=== PATIENT | female | born 1985 | race Caucasian/White ===

== ENCOUNTER 2016-09-12 17:57 | Emergency (ER) | payer MEDICAID ==
[~2016-09-12] VITALS: Ht 162.6 cm; Wt 98.0 kg
[2016-09-12 17:59] VITALS: Ht 162.6 cm; Wt 98.0 kg
[2016-09-12 18:58] LABS: URINE BLOOD (Dip) POC 2+ (NEGATIVE)
[2016-09-12] MEDS ORDERED: HYDROCODONE/APAP (5/325) TAB PO ONE (19:00)
--- NOTE | 2016-09-12 20:02 | RADRPT ---
PROCEDURE: US Pelvis. CLINICAL INDICATION: Pelvic pain. Left lower quadrant pain. TECHNIQUE: The pelvis was evaluated with transabdominal and transvaginal sonography in the axial a nd sagittal planes. COMPARISON: No prior study is available for comparison. FINDINGS: Uterus: 9.1 x 4.1 x 4.7 cm. Endometrium: 4.1 mm. An IUD is present in satisfactory position within the endometrial canal. Right ovary: Not visualized. Left ovary: 4.7 x 4.2 x 3.5 cm. Uterine masses: None. Ovarian masses: The right ovary is not visualized. There is a left ovarian cyst measuring 4.0 x 3.3 x 3.8 cm. There are no internal echoes or septations. Color Doppler and pulsed Doppler sonography demonstrate normal flow to left ovary. Other pelvic masses: None. Free fluid: None. IMPRESSION: 1. IUD in satisfactory position. 2. Right ovary not visualized. 3. Left ovarian cyst measuring 4.0 x 3.3 x 3.8 cm. This has a benign appearance. However, due to the size follow-up ultrasound in 6 weeks is advised. 4. Otherwise unremarkable study. RPTAT: QQ .Douglas Nails MD, MD Date Time Electronically viewed and signed by .Douglas Nails MD, on 09/12/2016 20:02 .R/
[2016-09-12] MEDS ORDERED: IBUP-1542 PO (20:22)
[2016-09-12] MEDS ORDERED: HYDR-906 PO (20:22)
[2016-09-12 20:35] VITALS: BP 122/82; PULSE 68; RESP 18; TEMP 98.3
--- NOTE | 2016-09-12 22:14 | ERD ---
ER Documentation Chief Complaint Date/Time DATE: 09/12/16 TIME: 22:11 Chief Complaint ap HPI This is a 31-year-old female presents to the ER with lower left-sided pelvic pain that started 3 days ago. Patient states that the pelvic pain radiates to the left side of her back. It's throbbing in quality. Patient had one episode of nonbloody watery diarrhea yesterday. Patient denies any abnormal vaginal discharge. She denies any urinary frequency or dysuria. She denies any fevers or chills. She denies any nausea or vomiting. Patient has an IUD in place and states that her period Is not normal. ROS 12 point review of systems was done, all negative except per HPI. Medications Home Meds Active Scripts Hydrocodone/Acetaminophen ([place] 5-325 Tablet) 1 Each Tablet, 1 TAB PO Q6H Y for PAIN, #10 TAB Prov:LJ,RADHA C 09/12/16 Ibuprofen* (Motrin*) 600 Mg Tab, 600 MG PO Q6, #30 TAB Prov:LJ,RADHA C 09/12/16 Allergies Allergies: Coded Allergies: No Known Allergy (Verified , 09/12/16) PMhx/Soc Medical and Surgical Hx: pt denies Medical Hx, pt denies Surgical Hx Hx Alcohol Use: No Hx Substance Use: No Hx Tobacco Use: No Smoking Status: Never smoker Physical Exam Vitals Vital Signs Date Time Temp Pulse Resp B/P Pulse Ox O2 Delivery O2 Flow Rate FiO2 09/12/16 20:35 98.3 68 18 122/82 99 Room Air 09/12/16 17:59 98.3 85 18 127/85 99 Physical Exam GENERAL: The patient is well developed and appropriate for usual state of health , in no apparent distress. HEENT: Atraumatic. CHEST: Clear to auscultation bilaterally. There are no rales, wheezes or rhonchi. HEART: Regular rate and rhythm. No murmurs, clicks, rubs or gallops. ABDOMEN: Soft, nontender and nondistended. Good bowel sounds. No rebound or guarding. No gross peritonitis. No gross organomegaly or masses. No Flores sign or McBurney point tenderness. patient is ttp to the lower left pelvic area. BACK: No midline or flank tenderness. NEURO: Alert and oriented. Results 24 hrs Laboratory Tests Test 09/12/16 18:58 Bedside Urine pH (LAB) 6.0 Bedside Urine Protein (LAB) Negative Bedside Urine Glucose (UA) Negative Bedside Urine Ketones (LAB) Negative Bedside Urine Blood 2+ Bedside Urine Nitrite (LAB) Negative Bedside Urine Leukocyte Esterase (L Negative Current Medications Medications (Trade) Dose Ordered Sig/Ilsa Route PRN Reason Start Time Stop Time Status Last Admin Dose Admin Acetaminophen/ Hydrocodone Bitart ([place] (5/325)) 1 tab ONCE ONCE PO 09/12/16 19:00 09/12/16 19:01 DC 09/12/16 19:00 Procedures/MDM This is a 31-year-old female presents to the ER with lower left-sided pelvic pain. At this time patient does have an ovarian cyst. Suspicion for torsion is low. Suspicion for urinary tract infection, pyelonephritis, STI, PID, tubo- ovarian torsions low. Patient is afebrile and well-appearing. He'll be sent home with [place] and with ibuprofen. She needs to follow-up with her primary care doctor within 1-2 days return to ER sooner symptoms worsen. My medical decision making was shared with patient she understands and agrees with plan. Departure Diagnosis: Primary Impression: Ovarian cyst Condition: Stable Patient Instructions: Ovarian Cyst Additional Instructions: Call your primary care doctor TOMORROW for an appointment during the next 1-2 days.See the doctor sooner or return here if your condition worsens before your appointment time. RADHA CALHOUN Sep 12, 2016 22:14
== END 2016-09-12 20:36 | disposition home or self-care (01) ==
LOC: FTE 17:57
DX: N83.202 Unspecified ovarian cyst, left side (principal)
CPT/HCPCS: 76830; 76856; 81003; Z7502; Z7610